=== PATIENT | male | born 1980 | race Caucasian/White ===

== ENCOUNTER 2022-11-23 13:19 | Emergency (ER) | payer SELFPAY ==
[2022-11-23 13:26] VITALS: BP 125/104; PULSE 85; TEMP 35.6; O2SAT 97; BMI 29.4
--- NOTE | 2022-11-23 15:43 | ED_ITS ---
HPI - Wound/Laceration General Chief Complaint: Laceration/Wound Stated Complaint: Hand Lac Time Seen by Provider: 11/23/22 13:22 History of Present Illness HPI narrative: 42-year-old man presenting with spouse to the emergency department with concern of a laceration to his right thumb. This occurred on the job. 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 This was with his utility knife. He has some numbness along the radial side of the thumb he reports. He feels that it was pretty d eep. Up-to-date on immunizations. They able to move his thumb. Not complaining of any lightheadedness or shortness of breath. Related Data Home Medications Medication Instructions Recorded Confirmed omeprazole .ROUTE 11/23/22 Allergies Allergy/AdvReac Type Severity Reaction Status Date / Time No Known Drug Allergies Allergy Verified 11/23/22 13:29 Review of Systems Status of ROS: Reports: 6 or more systems reviewed and unremarkable except as noted in History and below PFSH [facility] Social History Smoking Status: Never smoker How often do you have a drink containing alcohol: 4 or more times a week How many standard drinks containing alcohol do you have on a typical day: 5 or 6 How often do you have six or more drinks on one occasion: Weekly AUDIT-C Alcohol total score: 9 Non-prescribed substance use: denies use Exam Narrative: Exam Narrative: Pleasant. NAD. Well built/well muscled. Breathing easily. Well perfused peripherally. Has gauze wrapped around his right thumb. Examination here shows a laceration of the proximal phalanx somewhat irregularly angled and little over an inch in length. Full dermal. Bleeds easily manipulated. With certain exposures there is a vascular spurting. He does have reportedly a loss of sensation not in the absolute distal thumb but along the radial side distal thumb/distal phalanx. He is sore to palpation over the wound itself. Has intact and strong flexion extension at all joints of the thumb. Eczematous plaquing eruptions. Const: Vital Signs, click to edit/add: Vital Signs - 24 hr 11/23/22 13:26 Temperature 96.0 F L Pulse Rate [Pulse Oximeter] 85 Blood Pressure [Ri ght Upper Arm] 125/104 H Pulse Oximetry 97 Oxygen Delivery Me thod Room Air Documenting provider has reviewed patient's vital signs: yes Course Vital Signs Vital signs: Initial Vital Signs Temperature 96.0 F L 11/23/22 13:26 Temperature Source Temporal Artery Scan 11/23/22 13:26 Pulse Rate 85 11/23/22 13:26 Blood Pressure 125/104 H 11/23/22 13:26 Blood Pressure Mean 111 11/23/22 13:26 Blood Pressure Position Sitting 11/23/22 13:26 Pulse Oximetry 97 11/23/22 13:26 Oxygen Delivery Method 11/23/22 13:26 Vital Signs Temperature 96.0 F L 11/23/22 13:26 Pulse Rate 85 11/23/22 13:26 Blood Pressure 125/104 H 11/23/22 13:26 Pulse Oximetry 97 11/23/22 13:26 Oxygen Delivery Method 11/23/22 13:26 Temperature 96.0 F L 11/23/22 13:26 Pulse Rate 85 11/23/22 13:26 Blood Pressure 125/104 H 11/23/22 13:26 Pulse Oximetry 97 11/23/22 13:26 Oxygen Delivery Method 11/23/22 13:26 MDM - Wound/Laceration MDM Narrative Medical decision making narrative: Given his work as well as propensity to bleed easily this wound, think sutures would be in order. A from digital block with 2% lidocaine. Adequate wound anesthesia was achieved. Further exploration of the wound not reveal any foreign body. Was placed in Hibiclens type soaking then scrubbing solution. Sc rubbed further with same. Sutured with 5-0 interrupted Ethilon sutures with excellent wound approximation and good control of bleeding. Still oozes slightly. Band-aid, antibiotic ointment and light rodriguez pressure dressing Discharge Plan Discharge Clinical Impression: Finger laceration Patient Disposition: Home w/ Parent or Adult Condition: Improved Additional Instructions: sutures out in 9-10 days. antibiotic ointment for 5 days and then to a dry dressing at least until sutures are out. Given your work I would keep it covered with a durable Band-Aid over that time. ok to get wet but try not to soak while sutures are in. Watch for spreading redness after 2 days beyond the knuckle accompanied by heat, swelling, marked increase in pain and maybe even purulent drainage. Sorry to say, it may take years for that initial numbness you had to resolve. If you bleed through this current dressing, replace. If you bleed through the 2nd, be seen/return. Prescriptions: No Action omeprazole [Prilosec] .ROUTE Follow Up/Referrals: Provider,Not a Local [Primary Care Provider] - Stand Alone Forms: Al Detal Info Instructions
== END 2022-11-23 14:41 | disposition home or self-care (01) ==
PROVIDERS: Emergency Provider Family Medicine
DX: S61.011A Laceration without foreign body of right thumb without damage to nail, initial encounter (principal); W26.0XXA Contact with knife, initial encounter
CPT/HCPCS: 12001; 99283

== ENCOUNTER 2024-01-18 09:33 | Outpatient (CLI) | payer OTHER, SELFPAY | END 2024-01-18 09:34 | disposition home or self-care (01) | LOC: NFLDREF 01-19 06:37 | PROVIDERS: PCP Physician Assistant Medical; Referring Provider Physician Assistant Medical; Visit Provider Physician Assistant Medical | DX: R68.82 Decreased libido (principal); R03.0 Elevated blood-pressure reading, without diagnosis of hypertension; Z11.3 Encounter for screening for infections with a predominantly sexual mode of transmission; Z13.220 Encounter for screening for lipoid disorders; Z13.29 Encounter for screening for other suspected endocrine disorder | CPT/HCPCS: 80053; 80061; 84403; 84443; 86703; 86803 ==